=== PATIENT | female | born 1955 | race African-American/Black ===

== ENCOUNTER 2018-07-22 14:43 | Emergency (ER) | payer OTHER ==
[~2018-07-22] VITALS: Ht 170.2 cm; Wt 86.2 kg
[2018-07-22] MEDS ORDERED: LISINOPRIL10 MG PO (15:07)
[2018-07-22 16:05] VITALS: BP 155/60
== END 2018-07-22 16:20 | disposition home or self-care (01) ==
LOC: ER 14:43
DX: R04.0 Epistaxis (principal); I10 Essential (primary) hypertension; Z88.1 Allergy status to other antibiotic agents